=== PATIENT | female | born 1965 | race Caucasian/White ===

== ENCOUNTER 2023-08-21 13:06 | Outpatient (REF) | payer OTHER, SELFPAY ==
--- NOTE | 2023-08-21 10:00 | SKI_PTH ---
PATIENT: Mary Ann Soto LOC: [facility] U#:[id number] AGE/SX: 58/F ROOM: RE08/21/[address]: Yeyo Colon MD : 1965 BED: DIS: 08/21/2023 SPEC #: [id number] RECD: 08/21/23 17:59 STATUS: CATARINO RECarmela #: [id number] MELANIE: 08/21/23 10:[address]: Yeyo Colon DEPT: Surgical Specimen RECD BY: Justine Ring ENTERED: 08/21/23 18:00 SP TYPE: DALE DO DR: Ginny Green Tissues: 1 - SKIN BIOPSY(SHAVE/PUNCH) 2 - TONGUE BIOPSY Procedures: GROSS AND MICRO LEVEL 4 SPECIAL STAIN 1 Comments: [id number]
== END 2023-08-21 13:07 | disposition home or self-care (01) ==
LOC: LBN 13:06
PROVIDERS: PCP Physician Assistant Medical; Visit Provider Otolaryngology
DX: K13.79 Other lesions of oral mucosa (principal); K14.8 Other diseases of tongue
CPT/HCPCS: 88305; 88312